=== PATIENT | male | born 1990 | race Caucasian/White ===

== ENCOUNTER 2016-12-28 22:18 | Emergency (ER) | payer OTHER ==
[~2016-12-28] VITALS: Ht 177.8 cm; Wt 86.2 kg
--- NOTE | 2016-12-28 22:40 | ED AMS/SEIZURE/WEAK/DIZZY ---
History of Present Illness General Chief Complaint: Dizziness Stated Complaint: VERTIGO Source: patient Exam Limitations: no limitations Vital Signs & Intake/Output Vital Signs & Intake/Output Vital Signs Date Time Temp Pulse Resp B/P B/P Pulse O2 O2 Flow FiO2 Mean Ox Delivery Rate 12/28 2326 98.3 77 18 139/81 98 Room Air 12/285 98.3 79 18 149/84 98 Room Air ED Intake and Output 12/29 0000 12/28 1200 Intake Total Output Total Balance Patient 190 lb Weight Weight Reported by Patient Measurement Method Allergies Coded Allergies: Penicillins (Severe, HIVES 12/28/16) Reconcile Medications Meclizine HCl 12.5 MG TABLET 12.5 MG PO DAILY DIZZY (Reported) Triage Note: PT TO ED FOR WORSENING VERTIGO SINCE MONDAY, SAW [facility] YESTERDAY, PRESCRIBED MECLIZINE WITH NO RELIEF. PT ALSO REPORTING "EXTREME ANXIETY BECAUSE IM DIZZY" PT DESCRIBES DIZZINESS ROOM SPINNING, WORSENING WITH MOVING HEAD SIDE TO SIDE, DENIES NAUSEA, VOMITING. (BULMARO BAE MD) Triage Nurses Notes Reviewed? yes (per dr. bae) HPI: per dr. bae (SIMI VALDEZ,MARTIR Fulton) Past History Travel History Traveled to [place] past 21 day No Medical History Neurological: NONE EENT: NONE Cardiovascular: NONE Respiratory: NONE Gastrointestinal: NONE Hepatic: NONE Renal: NONE Musculoskeletal: NONE Psychiatric: anxiety Endocrine: NONE Blood Disorders: NONE Cancer(s): NONE Psychosocial History What is your primary language Pakistani Tobacco Use: Never used ETOH Use: denies use Illicit Drug Use: denies illicit drug use (BULMARO BAE MD) Medical History Any Pertinent Medical History? see below for history Surgical History Surgical History: non-contributory Family History Hx Contributory? No (MARTIR WANG MD) Review of Systems Review of Systems Constitutional: Reports: see HPI. (MARTIR WANG MD) Physical Exam Physical Exam General Appearance: per dr. bae... Core Measures ACS in differential dx? No CVA/TIA Diagnosis: No Severe Sepsis Present: No Septic Shock Present: No (MARTIR WANG MD) Progress Plan of Care: Orders Procedure Date/time Status CT HEAD WO IV CONTRAST 12/28 382 Active Diagnostic Imaging: Viewed by Me: CT Scan. Discussed w/RAD: CT Scan. Radiology Impression: PATIENT: LAURA MAHARAJ PRESENT AGE: 26 PATIENT ACCOUNT NO: [id number] : 91 LOCATION: [facility] ORDERING PHYSICIAN: BULMARO BAE MD SERVICE DATE: 12/28/16 EXAM TYPE: CAT - CT HEAD WO IV CONTRAST EXAMINATION: CT HEAD WITHOUT CONTRAST CLINICAL INFORMATION: Persistent dizziness. Right head pressure. COMPARISON: None. TECHNIQUE: Contiguous axial imaging was performed from the skull base to vertex without intravenous contrast. DLP: 606 mGy-cm. FINDINGS: There is no evidence of acute intracranial hemorrhage or territorial infarction. No abnormal mass effect or midline shift is seen. Rod to white matter differentiation is well preserved. No extra-axial fluid collections are identified. No hydrocephalus. No significant volume loss. There is no abnormal attenuation within the brain parenchyma. The osseous structures and soft tissues are normal. The mastoid air cells and visualized portions of the paranasal sinuses are well aerated. IMPRESSION: No acute intracranial pathology. DICTATED BY: JENAE LIRIANO MD DATE/TIME DICTATED:12/28/162307 MERCURY CRACKING TESTER:BASILIO DATE/TIME TRANSCRIBED:12/28/162307 CONFIDENTIAL, DO NOT COPY WITHOUT APPROPRIATE AUTHORIZATION. <Electronically signed in Other Vendor System> SIGNED BY: JENAE LIRIANO MD 12/28/162314 Hand-Off Endorsed To: MARTIR WANG MD Endorsed Time: 2299 Pending: CT (BULMARO BAE MD) Differential Diagnosis: per dr. bae Initial ED EKG: per dr. bae (MARTIR WANG MD) Departure Departure Time of Disposition: 2321 Disposition: HOME OR SELF CARE Condition: Stable Clinical Impression Primary Impression: Vertigo Referrals: HUSSEIN ROBLERO DO (PCP/Family) BOBBI ROMERO MD Additional Instructions: Continue the meclizine. Follow-up with the ENT specialist listed. Her CAT scan was negative. Please follow up with your physical examination with the primary care doctor as well. Departure Forms: Customer Survey General Discharge Information (BULMARO BAE MD) Departure Comments PT DISCHARGED PRIOR TO ME (Dr. Wang) SEEING THE PATIENT. PT DISCHARGED BY DR. BAE (MARTIR WANG MD)
[2016-12-28] MEDS ORDERED: MECLIZINE HCL12.5 M1 PO (22:48)
--- NOTE | 2016-12-28 23:15 | CT SCAN REPORT ---
EXAMINATION: CT HEAD WITHOUT CONTRAST CLINICAL INFORMATION: Persistent dizziness. Right head pressure. COMPARISON: None. TECHNIQUE: Contiguous axial imaging was performed from the skull base to vertex without intravenous contrast. DLP: 606 mGy-cm. FINDINGS: There is no evidence of acute intracranial hemorrhage or territorial infarction. No abnormal mass effect or midline shift is seen. Rod to white matter differentiation is well preserved. No extra-axial fluid collections are identified. No hydrocephalus. No significant volume loss. There is no abnormal attenuation within the brain parenchyma. The osseous structures and soft tissues are normal. The mastoid air cells and visualized portions of the paranasal sinuses are well aerated. IMPRESSION: No acute intracranial pathology.
[2016-12-28 23:27] VITALS: BP 139/81
== END 2016-12-28 23:27 ==
LOC: ERH 22:18
DX: R42 Dizziness and giddiness (principal)